=== PATIENT | female | born 1955 | race Caucasian/White ===

== ENCOUNTER → 2017-03-13 | Outpatient (CLI) | payer OTHER | LOC: ECHO 03-06 11:00 | DX: R00.2 Palpitations (principal); I07.1 Rheumatic tricuspid insufficiency; I34.0 Nonrheumatic mitral (valve) insufficiency; I27.2 Other secondary pulmonary hypertension | CPT/HCPCS: ECHO; 93306 ==

== ENCOUNTER → 2021-02-01 | Outpatient (CLI) | payer OTHER ==
[~2021-02-01] MED LIST: ATIVAN0.5 MG PO; ATIVAN1 MG PO; AUGMENTIN 875-1 EACH PO; BIOTIN2500 MCG PO; CYCLOBENZAPRINE5 MG PO; DOXYCYCLINE HY100 MG PO; IBUPROFEN600 MG PO; LEVOTHYROXINE100 MCG PO; MAGNESIUM250 MG PO; MULTI-VITAMIN1 EACH PO; MYCOSTATIN100000 UTS PO; NEXIUM40 MG PO; PHENERGAN 25 MG25 M1 PO; POTASSIUM99 M1 PO; ULTRAM50 MG PO; VITAMIN D21250 MCG PO
== END ==
LOC: EXRD 10:28
DX: I73.89 Other specified peripheral vascular diseases (principal)
CPT/HCPCS: 93925

== ENCOUNTER → 2022-03-11 | Outpatient (CLI) | payer OTHER | LOC: US 12:17 | DX: M79.605 Pain in left leg (principal); M79.89 Other specified soft tissue disorders | CPT/HCPCS: 93971 ==

== ENCOUNTER → 2022-04-21 | Outpatient (CLI) | payer OTHER | LOC: RAD 10:34 | DX: M79.606 Pain in leg, unspecified (principal); M48.061 Spinal stenosis, lumbar region without neurogenic claudication; M51.16 Intervertebral disc disorders with radiculopathy, lumbar region; M47.817 Spondylosis without myelopathy or radiculopathy, lumbosacral region | CPT/HCPCS: 72100 ==